=== PATIENT | male | born 1970 | race Caucasian/White ===

== ENCOUNTER 2019-02-28 05:21 | Day surgery (SDC) | payer MEDICAID ==
[2019-02-25 15:28] LABS: BASOPHILS # (AUTO) 0.1 X10'3 (0-0.2); BASOPHILS % (AUTO) 1.4 % (0-1); EOSINOPHILS # (AUTO) 0.2 X10'3 (0-0.9); EOSINOPHILS % (AUTO) 3.6 % (0-6); LYMPHOCYTES # (AUTO) 1.7 X10'3 (1.1-4.8); LYMPHOCYTES % (AUTO) 29.8 % (21-51); MEAN CORPUSCULAR HEMOGLOBIN 29.6 PG (27.0-31.0); MEAN CORPUSCULAR HGB CONC 33.9 g/dL (33.0-36.5); MEAN CORPUSCULAR VOLUME 87.4 FL (78-98); MEAN PLATELET VOLUME 8.3 FL (7.4-10.4); MONOCYTES # (AUTO) 0.3 X10'3 (0-0.9); MONOCYTES % (AUTO) 4.9 % (2-12); NEUTROPHILS # (AUTO) 3.5 X10'3 (1.8-7.7); NEUTROPHILS % (AUTO) 60.3 % (42-75); PRE OP HEMATOCRIT 45.9 % (42.0-52.0); PRE OP HEMOGLOBIN 15.6 g/dL (14.0-17.9); PRE OP PLATELET COUNT 267 X10'3 (140-440); RED BLOOD COUNT 5.25 X10'6 (4.70-6.10); RED CELL DISTRIBUTION WIDTH 13.2 % (11.5-14.5)
[2019-02-25 15:37] LABS: ALBUMIN/GLOBULIN RATIO 1.1 (1.1-1.5); ALKALINE PHOSPHATASE 72 IU/L (46-116); BLOOD UREA NITROGEN 17 MG/DL (7-18); CALCIUM 8.6 MG/DL (8.5-10.1); CHLORIDE 106 MMOL/L (99-107); CREATININE 1.06 MG/DL (0.60-1.10); PRE OP ALT 37 U/L (30-65); PRE OP ANION GAP 9 (8-16); PRE OP AST 15 U/L (10-37); PRE OP BILIRUB, TOTAL 0.5 MG/DL (0.0-1.0); PRE OP GLUCOSE 100 MG/DL (70-104); PRE OP POTASSIUM 4.1 MMOL/L (3.4-5.1); PRE OP SODIUM 140 MMOL/L (135-145); TOTAL CARBON DIOXIDE 24.7 MMOL/L (24-32); TOTAL PROTEIN 7.7 G/DL (6.4-8.2); eGFR 75 ML/MIN
[~2019-02-28] VITALS: Ht 177.8 cm; Wt 102.1 kg
[~2019-02-28 05:21] MED LIST: NO HOME MEDS; ringers solution, lacted 1,000 ML IV SCH
[2019-02-28 05:30] VITALS: BP 141/93
[2019-02-28] MEDS ORDERED: famotidine 10mg tablet PO ONE (05:30)
[2019-02-28] MEDS ORDERED: cefazolin/dext.iso 2gm/100ml 100 ML IV ONE (05:30)
[2019-02-28] MEDS ORDERED: LIDOcaine 1% (10mg/ml) 2ml vial ONE (05:36)
[2019-02-28] MEDS ORDERED: LIDOcaine 0.5% (5mg/ml) 50ml vial ONE (07:15)
[2019-02-28] MEDS ORDERED: MIDAZolam 5mg/5ml vial ONE (07:31)
[2019-02-28] MEDS ORDERED: fentaNYL/PF 50MCG/1 ML 2ML syringe ONE (07:31)
[2019-02-28] MEDS ORDERED: BUPIVAcaine/PF 2.5 mg/ml (0.25%) 30ml vial ONE (08:10)
[2019-02-28 08:17] VITALS: BP 140/64
--- NOTE | 2019-02-28 08:17 | NUR ---
Received from OR via [facility], accompanied by Anesthesiologist Ayush and report given by Anesthesiolgist. Pt alert and oriented answering questions appropriately, VS stable and no oxygen. Pt left hand with gauze wraps and splint to left hand. No drainage or bleeding to site. 20G IV to right AC and 100cc/hr IVG LR. Pulses to radial wrists palpable.
[2019-02-28] MEDS ORDERED: ringers solution, lacted 1,000 ML IV SCH (08:21)
[2019-02-28] MEDS ORDERED: meperidine/PF 25mg/ml syringe ONE (08:22)
[2019-02-28] MEDS ORDERED: morphine 4 MG/ML inj SYRINge IV PRN ×2 (08:25)
[2019-02-28] MEDS ORDERED: ondansetron/PF 4mg/2ml inj IV PRN (08:25)
[2019-02-28] MEDS ORDERED: proCHLORperazine 10 MG/2 ml inj IV PRN (08:25)
[2019-02-28] MEDS ORDERED: meperidine/PF 25mg/ml syringe IV PRN ×3 (08:25)
[2019-02-28 08:27] VITALS: BP 167/95
[2019-02-28 08:37] VITALS: BP 147/92
[2019-02-28] MEDS ORDERED: HYDROcodone/acetaminophen 10/325mg tab PO ONE (08:45)
[2019-02-28 08:47] VITALS: BP 148/81
--- NOTE | 2019-02-28 09:17 | NUR ---
Pt discharged to vehicle by wheelchair without incident. IV DC'd, patient verbalized understanding of all DC information. Pt given norco script by MD at bedside. Pt knows to follow up in 1 week. All belongings given back to patient and in his own clothing. Radial pulses remain palpable, dressing remains CDI, materials given to patient.
== END 2019-02-28 09:17 | disposition home or self-care (01) ==
LOC: PAS 05:21
PROVIDERS: ATTEND Orthopaedic Surgery Hand Surgery
DX: S68.111A Complete traumatic metacarpophalangeal amputation of left index finger, initial encounter (principal); Z98.890 Other specified postprocedural states; Z79.899 Other long term (current) drug therapy; X58.XXXA Exposure to other specified factors, initial encounter; Y93.89 Activity, other specified; Y92.89 Other specified places as the place of occurrence of the external cause; Y99.8 Other external cause status
CPT/HCPCS: 26951; 36415; 80053; 82948; 85025; 93005; A6222; J2001; J2175; J2250; J3010; J3490; J7120; A4618; A6449; A7000